=== PATIENT | male | born 1950 | race Caucasian/White ===

== ENCOUNTER 2016-10-09 07:14 | Outpatient (CLI) | payer MEDICARE ==
[~2016-10-09] VITALS: Ht 167.6 cm; Wt 79.5 kg
--- NOTE | ~2016-10-09 | OP ---
PATIENT NAME: MISSY JOHNSTON MEDICAL RECORD: [id number] :46 LOCATION:D.CAT ADMISSION DATE: SURGEON: PRECIOUS DIEHL M.D. DATE OF OPERATION: 10/09/2016 PROCEDURES PERFORMED: 1. Selective coronary angiography. 2. Left heart catheterization with ventriculogram. 3. PTCA to the circumflex artery. INDICATION: A 66-year-old gentleman with a history of coronary artery disease, who presents with recurrent angina. Recent stress testing revealing inferior wall ischemia. EQUIPMENT USED: Diagnostic 5-Nigerian JL4, Jesse right, pigtail catheter. INTERVENTION: A 6-Nigerian XB LAD guide, BMW guide wire, 3.0 x 15 mm Martin balloon. TECHNIQUE: A 5-Nigerian sheath was inserted in retrograde fashion in the right common femoral artery. Next, selective coronary angiography was performed in standard views using 5-Nigerian JL4 and Jeses right. Left heart catheterization performed using pigtail catheter. CORONARY ANATOMY: 1. Left main: Left main trunk is moderate in caliber. It gives rise to the LAD and circumflex. There is no obstruction. 2. LAD: This is a moderate caliber vessel extending to the apex. It has mild irregularities throughout its course, but nothing worse than 20% 3. Circumflex: This vessel is moderate in caliber. The proximal vessel has been stented. There is a 70% to 80% in-stent restenosis seen in the mid body of the stent. The distal circumflex coronary artery. 4. Right coronary: This vessel is 100% occluded in proximal segment. This is a chronic occlusion. It is collateralized through the circumflex. 5. Left ventricle: Left ventricle is mildly dilated. There is mild to moderate LV dysfunction noted. Estimated ejection fraction is in the order of 40%. DESCRIPTION OF INTERVENTION: A 6-Nigerian sheath was inserted in retrograde fashion in the right common femoral artery. Next, 100 units per kilogram of heparin was infused. A 6-Nigerian XB LAD guide was advanced and engaged in the left main coronary artery. Next, a BMW guide wire was placed in the distal circumflex. The in-stent restenosis was predilated with a 3.0 x 15 mm Martin balloon at 14 atmospheres. Injections revealed a less than 10% residual stenosis with brisk flow the distal vessel. At this point, the wire and guide were removed. IMPRESSION: Successful percutaneous transluminal coronary angioplasty to the circumflex for in-stent restenosis. TRANSINT:[id number] Voice Confirmation ID: [id number] DOCUMENT ID: [id number] OPERATIVE REPORT [id number] MISSY JOHNSTON TIMOTHY E M.D. CC: [id number] DICTATION DATE: 10/09/16 [facility] TELECOMMUNICATIONS FIELD ENGINEER: 10/09/162001 DEP CLI 10/09/16 [place] [id number] [place] [id number]
--- NOTE | ~2016-10-09 | HEMODYNAMI ---
PATIENT:MISSY JOHNSTON MEDICAL RECORD: [id number] : 46 LOCATION:DIlsaCAT ADMISSION DATE: 10/09/16 Generatedon:10/09/201610:07 Patient name: MISSY JOHNSTON Patient #: [id number] SSN: : 1950 Date of study: 10/09/2016 Page: Of Hemodynamic Procedure Report Patient Data Patient Demographics Procedure consent was obtained First Name: MISSY Gender: Male Last Name: VICKIE : 1950 Middle Initial: M Age: 66 year(s) Patient #: [id number] Race: Additional ID: [id number] Contact details [address]: [address] [place] [address] State: [place] City: [place] Zip code: [address] Past Medical History Performed procedures and imaging results Date Procedure Procedure Results Comments 09/17/2016 Stress testing Positive->Intermediate fixed with SPECT MPI risk inferior compatible with previous inferior [place], reversible lateral and apical segments Admission Admission Data Admission Date: 10/09/2016 Admission Time: 7:14 Height (in.): 66 BSA: 1.89 (m2) Height (cm.): 167.64 BMI: 28.25 (kg/m2) Weight (lbs.): 175 Weight (kg.): 79.38 Lab Results Lab Result Date: 10/09/2016 Lab Result Time: 0:00 Biochemistry Name Units Result Min Max BUN mg/dl 16 --(---*)-- 7 18 Creatinine mg/dl 1.3 --(---*)-- 0.6 1.3 CBC Name Units Result Min Max Hemoglobin g/dl 15.1 --(-*--)-- 13.5 17.5 Procedure Procedure Types Cath Procedure Diagnostic Procedure [facility] w/Coronaries PCI Procedure PTCA Initial Miscellaneous Procedures Moderate Sedation up to 30 minutes Procedure Description Procedure Date Procedure Date: 10/09/2016 Procedure Start Time: 9:39 Procedure End Time: 10:06 Procedure Staff Name Function Spencer Wilhelm MD Performing Physician Sonido Nelson RT Scrub Anh Fernandez RN Nurse Jordan Louise RT Monitor Procedure Data Cath Procedure Fluoroscopy Diagnostic fluoroscopy Total fluoroscopy Time: 4.1 time: 4.1 min min Diagnostic fluoroscopy Total fluoroscopy dose: dose: 1200 mGy 1200 mGy Contrast Material Contrast Material Type Amount (ml) Isovue 300 123 Entry Location Entry Primary Successful Side Size Upsize Upsize Entry Closure Succes sful Closure Location (Fr) 1 (Fr) 2 (Fr) Remarks Device Remarks Femoral Right 5 Fr 6 Fr artery Short Estimated blood loss: 10 ml Diagnostic catheters Device Type Used For End Catheter Placement Cordis 5Fr JL 4.0 Procedure Catheter (MP) Cordis 5Fr 3DRC Catheter Procedure (MP) Cordis 5Fr Pigtail Procedure Catheter (MP) Procedure Complications No complications Procedure Medications Medication Administration Route Dosage Oxygen NC 2 l/min Heparin Flush Bag added to field 2 bags (1000units/500ml NS) Lidocaine 2% added to field 20 Versed I.V. 1 mg Fentanyl I.V. 50 mcg Versed I.V. 1 mg Fentanyl I.V. 50 mcg Versed I.V. 1 mg Fentanyl I.V. 50 mcg Heparin Bolus I.V. 7600 units Versed I.V. 1 mg Fentanyl I.V. 50 mcg Nitroglycerin IC/IA I.C. 100 mcg Brilinta P.O. 180 mg Hemodynamics Rest BSA: 1.89 (m2) HGB: 15.1 (g/dl) O2 Consumption: Estimated: 216.62 (ml/min) O2 Co nsumption indexed: Estimated:114.61 (ml/min/m) Heart Rate: 66 (bpm) Pressure Samples Time Site Value (mmHg) Purpose Heart Use Rate(bpm) 9:46 LV 123/7,9 Snapshot 31 9:54 AO 89/57(72) Snapshot 77 Gradients Valve Time Site Site Mean SEP/DFP Peak To Heart Use 1 2 (mmHg) (sec/min) Peak Rate (mmHg) (bpm) Aortic 9:47 LV AO 41 Snapshots Pre Cath Intra NCS Post Cath Vital Signs Time Heart Resp SPO2 NIBP (mmHg) Rhythm Pain Sedation Rate (ipm) (%) Status Level (bpm) 9:20:14 62 23 98 126/76(96) NSR 0 (11) 10(A) , No pain 9:24:25 66 23 100 112/79(98) NSR 0 (11) 10(A) , No pain 9:28:37 67 16 100 112/65(79) NSR 0 (11) 10(A) , No pain 9:32:47 68 16 98 112/69(95) NSR 0 (11) 10(A) , No pain 9:36:59 68 16 98 109/65(87) NSR 0 (11) 10(A) , No pain 9:41:09 64 17 100 110/66(86) NSR 0 (11) 10(A) , No pain 9:45:13 72 15 99 129/81(107) NSR 0 (11) 9(A) , No pain 9:49:29 71 15 100 127/71(86) NSR 0 (11) 9(A) , No pain 9:53:45 80 15 100 95/62(90) NSR 0 (11) 9(A) , No pain 9:57:49 82 15 99 108/65(88) NSR 0 (11) 9(A) , No pain 10:02:01 79 16 98 105/58(87) NSR 0 (11) 10(A) , No pain 10:06:06 73 16 100 113/75(92) NSR 0 (11) 10(A) , No pain Medications Time Medication Route Dose Verified Delivered Reason Notes Effectiveness by by 9:20:04 Oxygen NC 2 Spencer Anh Per physician l/min Brady Fernandez RN 9:20:12 Heparin Flush added 2 Spencer Spencer used for Bag to bags Brady Wilhelm MD procedure (1000units/500ml field NS) 9:20:21 Lidocaine 2% added 20ml Spencer Spencer used for to vial Brady Wilhelm MD procedure field 9:36:51 Versed I.V. 1 mg Spencer Anh for sedation Brady Fernandez RN 9:37:01 Fentanyl I.V. 50 Spencer Anh for sedation mcg Brady Fernandez RN 9:39:01 Versed I.V. 1 mg Spencer Anh for sedation Brady Fernandez RN 9:39:12 Fentanyl I.V. 50 Spencer Anh for sedation mcg Brady Fernandez RN 9:41:19 Versed I.V. 1 mg Spencer Anh for sedation Brady Fernandez RN 9:41:24 Fentanyl I.V. 50 Spencer Anh for sedation mcg Brady Fernandez RN 9:44:49 Versed I.V. 1 mg Spencer Anh for sedation Brady Fernandez RN 9:44:54 Fentanyl I.V. 50 Spencer Anh for sedation mcg Brady Fernandez RN 9:51:13 Heparin Bolus I.V. 7600 Spencer Anh for dose units Brady Fernandez RN anticoagulation verified with dr wilhelm 9:57:11 Nitroglycerin I.C. 100 Spencer Spencer for IC/IA mcg Brady shahid 10:02:09 Brilinta P.O. 180 Spencer Anh for mg Brady Fernandez RN antiplatelet therapy Procedure Log Time Note 8:44:52 ACC Patient presents with Stable Angina CCS Anginal Class 2--Slight limitation of ordinary activity. 8:44:54 Diagnostic Cath status Elective 8:50:30 Jordan KNOTT(R) sent for patient. Start room use. 9:18:39 Time tracking: Regular hours 9:18:43 Plan of Care:Hemodynamics will remain stable., Cardiac rhythm will remain stable., Comfort level will be maintained., Respiratory function will remain adequate., Patient/ family verbilizes understanding of procedure., Procedure tolerated without complication., Recovers from procedure without complications.. 9:18:48 Patient received from Pre/Post Procedure Room to [facility] 2 Alert and oriented. Tansferred to table in Supine position. 9:18:50 Warm blankets applied, and geni hugger turned on for patient comfort. 9:18:50 Correct patient and procedure confirmed by team. 9:18:51 Signed procedure consent form obtained from patient. 9:18:52 ECG and BP/O2 sat monitors applied to patient. 9:19:11 Vital chart was started 9:20:04 Oxygen 2 l/min NC was administered by Anh Fernandez RN; Per physician; 9:20:12 Heparin Flush Bag (1000units/500ml NS) 2 bags added to field was administered by Spencer Wilhelm MD; used for procedure; 9:20:21 Lidocaine 2% 20ml vial added to field was administered by Spencer Wilhelm MD; used for procedure; 9:23:59 Baseline sample Acquired. 9:24:04 Rhythm: sinus rhythm 9:24:08 Full Disclosure recording started 9:24:37 H&P Date Dictated: 09/10/2016 Within 30 days and on chart., H&P Addendum completed by physician on day of procedure. (MUST COMPLETE FOR ALL OUTPATIENTS). 9:24:38 Pre-procedure instructions explained to patient. 9:24:38 Pre-op teaching completed and patient verbalized understanding. 9:24:39 Family in waiting room. 9:24:41 Patient NPO since Midnight. 9:24:42 Is the patient allergic to Iodine/contrast media? No. 9:25:53 Is patient on blood thinner?No 9:25:55 Patient diabetic? No. 9:25:58 Previous problem with sedation/anesthesia? No ? 9:25:59 Snore? Yes 9:26:00 Sleep apnea? No 9:26:01 Deviated septum? No 9:26:02 Opens mouth fully? Yes 9:26:03 Sticks out tongue? Yes 9:26:05 Airway obstruction? No ? 9:26:08 Dentures? Yes IN 9:26:23 Pre procedure: right dorsailis pedis pulse 1+ Palpable, but thready & weak; easily obliterated 9:26:25 Lab results completed and on chart. 9:26:30 Right groin area was prepped with chlora-prep and draped in sterile fashion 9:26:31 Alarms reviewed by R. N. 9:26:32 Sharps counted by scrub and verified by R.N. 9:26:35 Use device set Femoral Dx 9:26:36 Tegaderm 4 x 4 opened to sterile field. 9:26:37 Acist Hand Control opened to sterile field. 9:26:37 Acist Manifold opened to sterile field. 9:26:39 Acist Syringe opened to sterile field. 9:26:39 Bag Decanter opened to sterile field. 9:26:40 Medline Cath Pack opened to sterile field. 9:26:40 Terumo 5Fr Clifton Sheath opened to sterile field. 9:26:40 St Juve 260cm J .035 wire opened to sterile field. 9:26:44 Diagnostic Infinity 5Fr Multipack catheter opened to sterile field. 9:30:31 Patient Height : 167.64 cm 9:30:35 Patient Weight : 79.38 kg 9:36:11 --------ALL STOP TIME OUT------ 9:36:12 Final Timeout: patient, procedure, and site verified with staff and physician. All members of the team are in agreement. 9:36:38 Right groin site verified by team. 9:36:41 Physical assessment completed. ASA score P 2 - A patient with mild systemic disease as per Spencer Wilhelm MD. 9:36:44 Sedation plan: IV Moderate Sedation Versed, Fentanyl 9:36:51 Versed 1 mg I.V. was administered by Anh Fernandez RN; for sedation; 9:37:01 Fentanyl 50 mcg I.V. was administered by Anh Fernandez RN; for sedation; 9:38:05 Lab Result : BUN 16 mg/dl 9:38:05 Lab Result : Hemoglobin 15.1 g/dl 9:38:05 Lab Result : Creatinine 1.3 mg/dl 9:39:01 Versed 1 mg I.V. was administered by Anh Fernandez RN; for sedation; 9:39:12 Fentanyl 50 mcg I.V. was administered by Anh Fernandez RN; for sedation; 9:39:52 Procedure started. 9:39:56 Local anesthetic to right femoral artery with Lidocaine 2% by Spencer Wilhelm MD.INITIAL ACCESS ONLY 9:41:19 Versed 1 mg I.V. was administered by Anh Fernandez RN; for sedation; 9:41:22 Zero performed for pressure channel P1 9:41:24 Fentanyl 50 mcg I.V. was administered by Anh Fernandez RN; for sedation; 9:42:22 A 5 Fr sheath was inserted into the Right Femoral artery 9:42:29 A Cordis 5Fr JL 4.0 Catheter (FARAZ) was advanced over the wire and used for Procedure. 9:43:54 LCA angiography performed. 9:44:49 Versed 1 mg I.V. was administered by Anh Fernandez RN; for sedation; 9:44:54 Fentanyl 50 mcg I.V. was administered by Anh Fernandez RN; for sedation; 9:45:05 Catheter exchanged over wire. 9:45:28 A Cordis 5Fr 3DRC Catheter (MP) was advanced over the wire and used for Procedure. 9:46:02 RCA occluded in the mid portion. 9:46:04 Catheter exchanged over wire. 9:46:11 A Cordis 5Fr Pigtail Catheter (MP) was advanced over the wire and used for Procedure. 9:47:02 LV angiography performed. 9:47:03 LV gram done using ASHLEY 9:47:05 LV hemodynamics recorded. 9:47:08 Injector settings: Ml/sec: 10, Volume: 20, 9:47:22 EF : 40 % 9:47:32 Catheter exchanged over wire. 9:47:33 Decade WorldwideixCompak Inflation Kit opened to sterile field. 9:47:34 b5media BMW [place] 2 J-tip 300cm 0.014 guide wir opened to sterile field. 9:47:34 High Pressure Extension Tubing (Brady) opened to sterile field. 9:47:34 Terumo 6Fr Clifton Sheath opened to sterile field. 9:47:35 Cordis 6FR XBLAD 3.5 guide catheter opened to sterile field. 9:48:24 Sheath upsized to a 6 Fr Short. 9:48:30 ACC PCI Site: [facility] has 70% stenosis. 9:48:32 ACC Pre-intervention MARU Flow is 3. 9:48:38 6 Fr XBLAD 3.5 guide catheter was inserted over the wire 9:51:13 Heparin Bolus 7600 units I.V. was administered by Anh Fernandez RN; for anticoagulation; dose verified with dr wilhelm 9:51:48 BM wire advanced. 9:53:44 Wire advanced across lesion. 9:54:21 Inflation number: 1 A [place] Sci [place] 3.0 X 15 balloon was prepped and advanced across the Mid CX, then inflated to 10 CARMEN for 0:10 (min:sec). 9:55:36 Inflation number: 2 The [place] Sci [place] 3.0 X 15 balloon was reinflated across the Mid CX, to 10 CARMEN for 0:10 (min:sec). 9:57:11 Nitroglycerin IC/IA 100 mcg I.C. was administered by Spencer Wilhelm MD; for vasodilation; 10:00:10 Stent catheter was removed intact over wire. 10:00:11 Wire removed. 10:00:11 Guide catheter removed. 10:00:20 Cordis 6Fr Exoseal opened to sterile field. 10:00:23 Procedure ended.(Physican Out) 10:00:29 Fluoroscopy time 04.10 minutes. 10:00:32 Fluoroscopy dose: 1200 mGy 10:00:32 Flurop Dose total: 1200 10:00:35 Contrast amount:Isovue 300 123ml. 10:00:37 Sharps counted by scrub and verified by R.N. 10:01:35 Insertion/operative site no bleeding no hematoma. 10:01:38 Post-op/insertion site Right Femoral artery dressed using a 4 x 4 and Tegaderm. 10:01:39 Post Procedure Pulses reassessed and unchanged 10:01:42 Post-procedure physical assessment completed. ASA score P 2 - A patient with mild systemic disease as per Spencer Wilhelm MD. 10:01:44 Post procedure rhythm: unchanged. 10:01:47 Estimated blood loss: 10 ml 10:01:49 Post procedure instruction explained to patient.Patient verbalizes understanding. 10:01:50 Patient needs reinforcement of post procedure teaching. 10:02:04 Procedure type changed to Cath procedure, Diagnostic procedure, LHC, LHC w/Coronaries, PCI procedure, PTCA Initial, Miscellaneous Procedures, Moderate Sedation up to 30 minutes 10:02:09 Brilinta 180 mg P.O. was administered by Anh Fernandez RN; for antiplatelet therapy; 10:02:09 Procedure Complication : No complications 10:06:19 Procedure and supply charges have been captured, reviewed, submitted and are correct. 10:06:21 Vital chart was stopped 10:: See physician's report for complete and final results. 10::23 Report given to Pre/Post Procedure Room. 10:06:26 Patient transfered to Pre/Post Procedure Room with Stretcher. 10:06:28 Procedure ended. 10::28 Full Disclosure recording stopped ::32 End room use (Document Last) Intervention Summary Intervention Notes Time ActionType Lesion and Equipment Action# Pressure Duration Attributes Used 9:54:21 Inflate Mid CX [place] 1 10 00:10 balloon [place] 3.0 X 15 balloon 9:55:36 Reinflate Mid CX [place] 2 10 00:10 balloon [place] 3.0 X 15 balloon Device Usage Item Name Manufacture Quantity Catalog Number Hospital Part Current Mini [facility] Lot# / Charge Number Stock Stock Serial# Code Tegaderm 4 1 [id number] 5 x 4 Acist Hand Acist 1 03264 096164 113460 254806 5 Control Medical Systems Inc Acist Acist 1 13183 435814 823177 450294 5 Manifold Medical Systems Inc Acist Acist 1 49164 132531 128801 856743 20 Syringe Medical Systems Inc Bag Microtek 1 2002S 653030 43356 178578 5 Decanter Medical Inc. Medline Cardinal 1 [id number] 859805 23210 684425 5 Cath Pack Health Terumo 5Fr Terumo 1 [id number] 787823 180649 252556 [address] Ju[address] St Juve 1 156998 895407 128103 866452 30 260cm J .035 wire Diagnostic Cardinal 1 [id number] 384861 69736 145236 30 Infinity Health 5Fr Multipack catheter Cordis 5Fr Cardinal 1 479475 5 JL 4.0 Health Catheter (MP) Cordis 5Fr Cardinal 1 196501 5 3DRC Health Catheter (MP) Cordis 5Fr Cardinal 1 186124 5 Pigtail Health Catheter (MP) Merit Merit 1 [id number] 034261 881968 289424 15 BasixCompak Medical Inflation Kit [place] BMW [place] 1 [id number] 170164 051219 028034 5 [place] 2 Vascular J-tip 300cm 0.014 guide wir High Merit 1 [id number] 229430 31200 262379 10 Pressure Medical Extension Tubing (Wilhelm) Terumo 6Fr Terumo 1 [id number] 563094 452071 169398 40 Clifton Sheath Cordis 6FR Cardinal 1 [id number] 999901 356057 018831 10 XBLAD 3.5 Health guide catheter [place] Sci [place] 1 [id number] 409057 621401 147805 1 Chenal Media 3.0 X 15 balloon Cordis 6Fr Cardinal 1 EX600 082567 154452 354442 10 Academize Signature Audit [place] Stage Time Signature Unsigned Intra-Procedure 10/09/2016 Jordan Louise 10:06:57 AM RT(R) Signatures Monitor : Jordan Louise RT Signature : Date : Time : [address] [place] [address]
[~2016-10-09 07:14] MED LIST: ASPIRIN81 MG; ASPIRIN81 MG PO; EFFIENT10 MG PO; FLUTICASONE PRO16 GM NASAL; IPRAT-ALBUT 0.5-3 ML UPD; LASIX20 MG; LASIX20 MG PO; LEVAQUIN500 MG PO; LISINOPRIL2.5 MG PO; PREDNISONE20 MG PO; SINGULAIR10 MG; SINGULAIR10 MG PO; TESSALON PERLE100 MG PO
[2016-10-09] MEDS ORDERED: COREG6.25 MG PO (07:44)
[2016-10-09] MEDS ORDERED: BAYER CHEWABLE81 MG PO (07:44)
[2016-10-09] MEDS ORDERED: ALBUTEROL2.5 MG/3 M INH (07:45)
[2016-10-09 07:56] VITALS: BP 130/71; Ht 167.6 cm; Wt 79.5 kg
[2016-10-09 08:09] LABS: BASOPHILS 0.3 % (0-2); EOSINOPHILS 0 % (0-7); HEMATOCRIT 45.7 % (42.0-54.0); HEMOGLOBIN 15.1 g/dL (13.5-17.5); IMMATURE GRANULOCYTES 0.2 % (0-5); MCH 31.1 pg (26.0-34.0); MEAN PLATELET VOLUME 9.9 fL (7.4-10.4); NEUTROPHILS 70.5 % (40-80); PLATELET COUNT 206 10x3/uL (130-400); RBC 4.86 10x6/uL (4.20-6.10); RDW 13.5 % (11.5-14.5); WBC 9.1 10x3/uL (4.8-10.8)
[2016-10-09 08:24] LABS: ANION GAP 10.5 mmol/L (8-16); CALCIUM 9.4 mg/dL (8.5-10.1); CARBON DIOXIDE 29.3 mmol/L (21.0-32.0); CREATININE - SERUM 1.3 mg/dL (0.6-1.3); POTASSIUM - SERUM 4.8 mmol/L (3.5-5.1)
--- NOTE | 2016-10-09 10:35 | NUR ---
2L NC, NO RESP DISTRESS NOTED. RIGHT GROIN 6F EXOSEAL CDI, NO BLEEDING OR HEMATOMA NOTED. VSS. NO C/O CHEST PAIN OR NAUSEA. WILL CONTINUE TO MONITOR.
[2016-10-09] MEDS ORDERED: BRILINTA90 MG PO (10:42)
--- NOTE | 2016-10-09 11:35 | NUR ---
1125 DRESSING TO RIGHT GROIN IS CLEAN AND DRY BUT SMALL HEMATOMA NOTED. PRESSURE HELD AT SITE X 5 MINS AND SUPERVISORY IT SPECIALIST STAFF APPLIED FEMSTOP. WILL CONTINUE TO MONITOR.
--- NOTE | 2016-10-09 12:14 | NUR ---
[address], NO BLEEDING NOTED, HEMATOMA SOFTENED. PT DENIES C/O. WILL CONTINUE TO MONITOR.
--- NOTE | 2016-10-09 12:30 | NUR ---
FEMSTOP PRESSURE DECREASED BY 20. NO BLEEDING OR HEMATOMA NOTED.
--- NOTE | 2016-10-09 13:00 | NUR ---
FEMSTOP PRESSURE DECREASED BY 20. NO BLEEDING OR HEMATOMA NOTED.
--- NOTE | 2016-10-09 13:29 | NUR ---
FEMSTOP PRESSURE DECREASED BY 20. NO BLEEDING NOTED.
--- NOTE | 2016-10-09 13:45 | NUR ---
FEMSTOP PRESSURE DECREASED BY 30. NO BLEEDING NOTED.
--- NOTE | 2016-10-09 14:20 | NUR ---
REMAINING AIR REMOVED FROM FEMSTOP AND FEMSTOP REMOVED FROM GROIN. NO BLEEDING NOTED.
--- NOTE | 2016-10-09 14:44 | NUR ---
HOB ELEVATED 30 DEGREES. RIGHT GROIN CDI, NO BLEEDING OR HEMATOMA NOTED. SANDWICH TRAY GIVEN.
--- NOTE | 2016-10-09 15:07 | NUR ---
LEFT HAND PIV D/C'D WITH CATHETER INTACT, BAND AID TO SITE. UP TO BEDSIDE TO GET DRESSED.
--- NOTE | 2016-10-09 15:10 | NUR ---
UP TO RESTROOM TO VOID.
--- NOTE | 2016-10-09 15:15 | NUR ---
DISCHARGE INSTRUCTIONS GIVEN, VERBALIZED UNDERSTANDING.
--- NOTE | 2016-10-09 15:22 | NUR ---
TAKEN OUT VIA WHEELCHAIR BY CATH IMPORT EXPORT CLERK. LEFT FACILITY WITH FAMILY MEMBER AND ALL PERSONAL BELONGINGS.
== END 2016-10-09 15:22 | disposition home or self-care (01) ==
LOC: D.CATH 07:14
PROVIDERS: Internal Medicine Cardiovascular Disease
DX: I25.10 Atherosclerotic heart disease of native coronary artery without angina pectoris (principal); I10 Essential (primary) hypertension; F17.200 Nicotine dependence, unspecified, uncomplicated; Z01.812 Encounter for preprocedural laboratory examination

== ENCOUNTER → 2017-01-23 10:10 | Outpatient (CLI) | payer MEDICARE ==
[2016-10-09 07:56] VITALS: BMI 28.3
[~2017-01-23 10:10] MED LIST changes: +ALBUTEROL2.5 MG/3 M INH; +BAYER CHEWABLE81 MG PO; +BRILINTA90 MG PO; +COREG6.25 MG PO
== END | disposition home or self-care (01) ==
LOC: D.RT 10:10
DX: J44.9 Chronic obstructive pulmonary disease, unspecified (principal)

== ENCOUNTER → 2017-06-30 10:28 | Outpatient (CLI) | payer MEDICARE ==
[2016-10-09 07:56] VITALS: BMI 28.3
== END | disposition home or self-care (01) ==
LOC: D.RT 10:28
DX: J44.9 Chronic obstructive pulmonary disease, unspecified (principal)

== ENCOUNTER → 2018-07-06 12:50 | Outpatient (CLI) | payer MEDICARE ==
[2016-10-09 07:56] VITALS: BMI 28.3
== END | disposition home or self-care (01) ==
LOC: D.RT 11:00
DX: J44.9 Chronic obstructive pulmonary disease, unspecified (principal)

== ENCOUNTER → 2018-12-30 10:17 | Outpatient (CLI) | payer MEDICARE ==
[2016-10-09 07:56] VITALS: BMI 28.3
== END | disposition home or self-care (01) ==
LOC: D.HCCARDIO 10:17
PROVIDERS: ATTEND Internal Medicine Cardiovascular Disease
DX: I25.10 Atherosclerotic heart disease of native coronary artery without angina pectoris (principal)

== ENCOUNTER 2019-01-25 10:55 | Outpatient (CLI) | payer MEDICARE ==
[~2019-01-25] VITALS: Ht 167.6 cm; Wt 90.9 kg
--- NOTE | ~2019-01-25 | HEMODYNAMI ---
PATIENT:MISSY JOHNSTON MEDICAL RECORD: [id number] : 46 LOCATION:[facility] ADMISSION DATE: 01/25/19 Generatedon:01/25/201913:44 Patient name: MISSY JOHNSTON Patient #: [id number] SSN: [id number] : 1950 Date of study: 01/25/2019 Page: Of Hemodynamic Procedure Report Patient Data Patient Demographics Procedure consent was obtained First Name: MISSY Gender: Male Last Name: VICKIE : 1950 Middle Initial: M Age: 68 year(s) Patient #: [id number] Race: SSN: [id number] Additional ID: [id number] Contact details Address: [address] [place] [address] State: [place] City: [place] Zip code: [address] Past Medical History Performed procedures and imaging results Date Procedure Procedure Results Comments 12/30/2018 Standard Positive->Intermediate exercise stress risk test Allergies: No known allergies Admission Admission Data Admission Date: 01/25/2019 Admission Time: 10:55 Arrival Date: 01/25/2019 Arrival Time: 0:00 Admit Source: Other Insurance Payor: Private health insurance [facility] #: [id number] Height (in.): 65.75 BSA: 1.99 (m2) Height (cm.): 167 BMI: 32.27 (kg/m2) Weight (lbs.): 198.42 Weight (kg.): 90 Lab Results Lab Result Date: 01/25/2019 Lab Result Time: 12:05 Biochemistry Name Units Result Min Max BUN mg/dl 10 --(-*--)-- 7 18 Creatinine mg/dl 1.1 --(--*-)-- 0.6 1.3 CBC Name Units Result Min Max Hematocrit % 41.1 -*(----)-- 42 54 Hemoglobin g/dl 14.2 --(*---)-- 13.5 17.5 Procedure Procedure Types Cath Procedure Diagnostic Procedure [facility] Procedure Description Procedure Date Procedure Date: 01/25/2019 Procedure Start Time: 13:31 Procedure End Time: 13:43 Procedure Staff Name Function Spencer Abreu MD Performing Physician Xavier Atkinson RT Monitor Kenny Lugo RT Scrub Amy Amezcua RN Nurse Procedure Data Cath Procedure Fluoroscopy Diagnostic fluoroscopy Total fluoroscopy Time: 1.2 time: 1.2 min min Diagnostic fluoroscopy Total fluoroscopy dose: 470 dose: 470 mGy mGy Contrast Material Contrast Material Type Amount (ml) Isovue 300 56 Entry Location Entry Primary Successful Side Size Upsize Upsize Entry Closure Succes sful Closure Location (Fr) 1 (Fr) 2 (Fr) Remarks Device Remarks Femoral Right 5 Fr Exoseal artery Estimated blood loss: 5 ml Diagnostic catheters Device Type Used For End Catheter Placement MULTIPACK JL 4.0 5Fr Procedure catheter MULTIPACK 3DRC 5Fr Procedure catheter MULTIPACK Pigtail 5 Fr Procedure catheter Procedure Complications No complications Procedure Medications Medication Administration Route Dosage 0.9% NaCl I.V. 100 ml/hr Oxygen etCO2 Nasal cannula 2 l/min Lidocaine 2% added to field 20 Heparin Flush Bag added to field 2 bags (1000units/500ml NS) Versed I.V. 2 mg Fentanyl I.V. 100 mcg Hemodynamics Rest BSA: 1.99 (m2) HGB: 14.2 (g/dl) O2 Consumption: Estimated: 231.26 (ml/min) O2 Co nsumption indexed: Estimated:116.21 (ml/min/m) Heart Rate: 71 (bpm) Pressure Samples Time Site Value (mmHg) Purpose Heart Use Rate(bpm) 13:38 LV 157/7,27 Snapshot 75 13:39 AO 167/85(120) Pullback 81 13:39 LV 167/12,31 Pullback 81 Gradients Valve Time Site 1 Site 2 Mean SEP/DFP Peak To Heart Use (mmHg) (sec/min) Peak Rate (mmHg) (bpm) Aortic 13:39 LV AO 10 17 0 81 167/12,31 167/85(120) Calculations Valve P-P Mean Valve Index Valve Source Name Gradient Area Flow (cm2) Aortic 0 10 0 10 Snapshots Pre Cath Intra NCS Post Cath Vital Signs Time Heart Resp SPO2 etCO2 NIBP (mmHg) Rhythm Pain Sedation Rate (ipm) (%) (mmHg) Status Level (bpm) 13:21:29 71 11 100 36.7 140/81(114) NSR 0 (11) 10(A) , No pain 13:25:27 73 19 100 24.7 139/80(114) NSR 0 (11) 10(A) , No pain 13:29:22 72 17 98 35.2 130/80(102) NSR 0 (11) 10(A) , No pain 13:33:47 74 16 97 26.9 143/85(117) NSR 0 (11) 9(A) , No pain 13:38:21 74 19 99 35.2 160/83(116) NSR 0 (11) 10(A) , No pain 13:43:03 77 16 100 29.2 176/96(142) NSR 0 (11) 10(A) , No pain Medications Time Medication Route Dose Verified Delivered Reason Notes Eff ectiveness by by 13:23:45 0.9% NaCl I.V. 100 Spencer Amy used for ml/hr Brady Amezcua neon tube pumper 13:23:52 Oxygen etCO2 2 Spencer Amy used for Nasal l/min Brady Amezcua procedure cannula RN 13:23:56 Lidocaine 2% added 20ml Spencer Spencer for local to vial Brady Abreu MD anesthetic field 13:24:01 Heparin Flush added 2 Spencer Spencer used for Bag to bags Brady Abreu MD procedure (1000units/500ml field NS) 13:31:18 Versed I.V. 2 mg Spencer Amy for Brady Amezcua sedation RN 13:31:23 Fentanyl I.V. 100 Spencer Amy for mcg Brady Amezcua sedation trailer mechanic Log Time Note 13:05:46 Kenny Lugo RT(R) (CV) sent for patient. Start room use. 13:12:11 Informed consent obtained and on chart 13:16:55 Admit Source: Other 13:17:04 Insurance Payor : Private health insurance 13:17:18 Arrival Date: 01/25/2019 12:00:00 AM 13:17:21 Patient Weight : 198.42 lbs 13:17:27 Patient Height : 65.75 inches 13:19:36 ACC Patient presents with Stable Angina CCS Anginal Class 3--Marked limitation of physical activity, angina occurs with ordinary activity.. 13:19:40 ACCPatient has been prescribed/administered the following anti-anginal medication within the last 2 weeks: Beta Brian, MARY-Inhibitor 13:19:43 Procedure Status Elective Heart Cath (OP). 13:19:51 Time tracking: Regular hours (M-F 7:00 - 5:00) 13:19:54 Plan of Care:Hemodynamics will remain stable., Cardiac rhythm will remain stable., Comfort level will be maintained., Respiratory function will remain adequate., Patient/ family verbilizes understanding of procedure., Procedure tolerated without complication., Recovers from procedure without complications.. 13:19:57 Patient received from Pre/Post Procedure Room to [facility] 2 Alert and oriented. Tansferred to table in Supine position. 13:19:58 Warm blankets applied, and geni hugger turned on for patient comfort. 13:19:58 Correct patient and procedure confirmed by team. 13:19:59 ECG and BP/O2 sat monitors applied to patient. 13:20:28 H&P Date Dictated: 01/25/2019 Within 30 days and on chart.. 13:20:36 Vital chart was started 13:20:37 Baseline sample Acquired. 13:20:40 Rhythm: sinus rhythm 13:20:41 Full Disclosure recording started 13:20:42 Pre-procedure instructions explained to patient. 13:20:42 Pre-op teaching completed and patient verbalized understanding. 13:20:43 Family in waiting room. 13:20:45 Patient NPO since Breakfast. 13:20:50 Patient allergic to No known allergies 13:20:52 Is the patient allergic to Iodine/contrast media? No. 13:20:53 Is patient on blood thinner?No 13:20:54 Patient diabetic? No. 13:20:56 Previous problem with sedation/anesthesia? No ? 13:20:57 Snore? Yes 13:20:58 Sleep apnea? No 13:20:59 Deviated septum? No 13:20:59 Opens mouth fully? Yes 13:21:00 Sticks out tongue? Yes 13:21:03 Airway obstruction? Yes COPD 13:21:09 Dentures? Yes UPPER IN TIGHT 13:21:18 Pre procedure: right dorsailis pedis pulse 2+ Normal; easily identifiable; not easily obliterated 13:21:20 Patient pain scale 0/10 ?. 13:21:24 IV patent on arrival in left forearm with 0.9% NaCl at [facility]. 13::54 Lab Result : BUN 10 mg/dl 13:: Lab Result : Creatinine 1.1 mg/dl 13::54 Lab Result : Hematocrit 41.1 % ::54 Lab Result : Hemoglobin 14.2 g/dl 13::56 Lab results completed and on chart. 13::59 Right groin area was prepped with chlora-prep and draped in sterile fashion 13::59 Alarms reviewed by R. N. 13::59 Sharps counted by scrub and verified by R.N. 13:22:01 Use device set Femoral Dx 13:22:02 ACIST Syringe (05493) opened to sterile field. 13:22:02 Bag Decanter (2002S) opened to sterile field. 13:22:03 Medline Cath Pack ([id number]) opened to sterile field. 13:22:04 ACIST Hand Control (18813) opened to sterile field. 13:22:04 ACIST Manifold (62773) opened to sterile field. 13:22:05 DIAGNOSTIC Multipack 5Fr catheter set ([id number]) opened to sterile field. 13:22:05 Tegaderm 4 x 4 (1626W) opened to sterile field. 13:22:06 EMERALD Guide Wire (323-848) opened to sterile field. 13:22:07 SHEATH 5FR [place] (CZR086) opened to sterile field. 13:23:45 0.9% NaCl 100 ml/hr I.V. was administered by Amy Amezcua RN; used for procedure; 13:23:52 Oxygen 2 l/min etCO2 Nasal cannula was administered by Amy Amezcua RN; used for procedure; 13:23:56 Lidocaine 2% 20ml vial added to field was administered by Spencer Abreu MD; for local anesthetic; 13:24:01 Heparin Flush Bag (1000units/500ml NS) 2 bags added to field was administered by Spencer Abreu MD; used for procedure; 13:30:12 Zero performed for pressure channel P1 13:30:52 Physician arrived 13:30:52 --------ALL STOP TIME OUT------ 13:30:53 Final Timeout: patient, procedure, and site verified with staff and physician. All members of the team are in agreement. 13:30:54 Right groin site verified by team. 13:30:56 Fire Safety Assessment: A--An alcohol-based skin anteseptic being used preoperatively., C--Open oxygen or nitrous oxide is being used., D--An ESU, laser, or fiber-optic light is being used. 13:30:58 Physical assessment completed. ASA score P 2 - A patient with mild systemic disease as per Spencer Abreu MD. 13:31:02 2) 60-89 Mildly reduced kidney function, and other findings (as for stage 1) point to kidney disease. 13:31:09 Maximum allowable contrast dose (3.7 X eGFR X 0.75)195 ml. 13:31:12 Sedation plan: IV Moderate Sedation Medication:Versed, Fentanyl 13:31:18 Procedure started. 13:31:18 Versed 2 mg I.V. was administered by Amy Amezcua RN; for sedation; 13:31:21 Local anesthetic to right femoral artery with Lidocaine 2% by Spencer Abreu MD.INITIAL ACCESS ONLY 13:31:23 Fentanyl 100 mcg I.V. was administered by Amy Amezcua RN; for sedation; 13:32:51 A 5 Fr sheath was inserted into the Right Femoral artery 13:34:19 A MULTIPACK JL 4.0 5Fr catheter was advanced over the wire and used for Procedure. 13:35:02 LCA angiography performed. 13:35:44 Catheter exchanged over wire. 13:35:49 A MULTIPACK 3DRC 5Fr catheter was advanced over the wire and used for Procedure. 13:36:49 RCA angiography performed. 13:37:21 Catheter exchanged over wire. 13:37:26 A MULTIPACK Pigtail 5 Fr catheter was advanced over the wire and used for Procedure. 13:38:32 LV gram done using ASHLEY 13:38:35 Injector settings: Ml/sec: 10, Volume: 20, 13:38:36 LV hemodynamics recorded. 13:39:35 Catheter removed. 13:39:42 EXOSEAL 5Fr (EX500) opened to sterile field. 13:39:54 Sheath removed intact; hemostasis achieved with Exoseal to the Right Femoral artery. 13:39:55 Procedure ended.(Physican Out) 13:40:17 Fluoroscopy time 01.20 minutes. 13:40:20 Flurop Dose total: 470 13:40:20 Fluoroscopy dose: 470 mGy 13:40:34 Dose Area Product 85929 mGy/cm. 13:40:38 Contrast amount:Isovue 300 56ml. 13:40:40 Maximum allowable dose exceeded? No. 13:40:41 Sharps counted by scrub and verified by R.N. 13:40:42 Insertion/operative site no bleeding no hematoma. 13:40:44 Post-op/insertion site Right Femoral artery dressed using a 4 x 4 and Tegaderm. 13:40:47 Post right femoral artery:stable, soft, clean and dry 13:40:48 Post Procedure Pulses reassessed and unchanged 13:40:51 Post-procedure physical assessment completed. ASA score P 2 - A patient with mild systemic disease as per Spencer Abreu MD. 13:40:53 Post procedure rhythm: unchanged. 13:42:15 Estimated blood loss: 5 ml 13:42:28 Post procedure instruction explained to patient.Patient verbalizes understanding. 13:42:28 Patient needs reinforcement of post procedure teaching. 13:42:57 Procedure and supply charges have been captured, reviewed, submitted and are correct. 13:42:59 Procedure Complication : No complications 13:43:01 Vital chart was stopped 13:43:01 See physician's report for complete and final results. 13:43:05 Report given to Pre/Post Procedure Room. 13:43:07 Patient transfered to Pre/Post Procedure Room with Stretcher. 13:43:09 Procedure ended. 13:43:09 Full Disclosure recording stopped 13:43:16 End room use (Document Last) Device Usage Item Name Manufacture Quantity Catalog Hospital Part Current Minimal L ot# / Number Charge Number Stock Stock Serial# Code ACIST Acist 1 [id number] [id number] 20 Syringe Medical (38785) Systems Inc Bag Microtek 1 [id number] 72829 [id number] 5 Decanter Medical Inc. () Medline Medline 1 [id number] 359559 04296 472974 5 Cath Pack ([id number]) ACIST Hand Acist 1 24428 621827 631250 905762 5 Control Medical (85085) Systems Inc ACIST Acist 1 76296 901520 736195 425679 5 Manifold Medical (23629) Systems Inc DIAGNOSTIC Cardinal 1 [id number] 011157 26471 609178 30 Multipack Health 5Fr catheter set (SH8751) Tegaderm 4 3M 1 1626W 822168 309637 560378 5 x 4 (1626W) EMERALD Cardinal 1 502-455 551451 510270 900007 5 Guide Wire Health (502-455) SHEATH 5FR Terumo 1 DVP708 690428 329906 373996 5 [place] (OBP300) MULTIPACK Cardinal 1 620622 5 JL 4.0 5Fr Health catheter MULTIPACK Cardinal 1 681692 5 3DRC 5Fr Health catheter MULTIPACK Cardinal 1 938002 5 Pigtail 5 Health Fr catheter EXOSEAL 5Fr Cardinal 1 EX500 264243 687909 777990 10 (EX500) Health Signature Audit [place] Stage Time Signature Unsigned Intra-Procedure 01/25/2019 Xavier Atkinson 1:44:07 PM RT(R) Signatures Performing Physician : Signature : Spencer Abreu MD Date : Time : Monitor : Xavier Atkinson RT Signature : Date : Time : Nurse : Amy Amezcua RN Signature : Date : Time : [facility] [address], [place] [id number]
[2019-01-25] MEDS ORDERED: LISINOPRIL10 MG PO (11:50)
[2019-01-25] MEDS ORDERED: TRELEGY ELLIPT1 EACH INH (11:57)
[2019-01-25] MEDS ORDERED: AZELASTINE137 MCG/0. NASAL (11:58)
[2019-01-25 12:06] VITALS: BP 142/76; Ht 167.6 cm; Wt 90.9 kg
[2019-01-25 12:19] LABS: BASOPHILS 0.2 % (0-2); EOSINOPHILS 0 % (0-7); HEMATOCRIT 41.1 % (42.0-54.0); HEMOGLOBIN 14.2 g/dL (13.5-17.5); IMMATURE GRANULOCYTES 0.2 % (0-5); LYMPHOCYTES 20.5 % (15-50); MCH 30.5 pg (26.0-34.0); MCHC 34.5 g/dL (31.0-37.0); MCV 88.2 fL (80.0-100.0); MEAN PLATELET VOLUME 9.2 fL (7.4-10.4); MONOCYTES 10.3 % (2-11); NEUTROPHILS 68.8 % (40-80); PLATELET COUNT 211 10x3/uL (130-400); RBC 4.66 10x6/uL (4.20-6.10); RDW 14.9 % (11.5-14.5); WBC 10.2 10x3/uL (4.8-10.8)
[2019-01-25 12:35] LABS: ANION GAP 10.9 mmol/L (8-16); CALCIUM 9.2 mg/dL (8.5-10.1); CARBON DIOXIDE 28.6 mmol/L (21.0-32.0); CHOL - HDL RATIO 5.7 ratio (2.3-4.9); CREATININE - SERUM 1.1 mg/dL (0.6-1.3); POTASSIUM - SERUM 4.5 mmol/L (3.5-5.1)
--- NOTE | 2019-01-25 13:52 | NUR ---
PT ARRIVED BY STRETCHER. PLACED ON MONITOR. ASSESSMENT COMPLETED. VSS. NO FAMILY AT BEDSIDE AT THIS TIME. CALL LIGHT WITHIN REACH.
--- NOTE | 2019-01-25 14:07 | NUR ---
RIGHT GROIN DRESSING C/D/I. NO S/S OF HEMATOMA NOTED. CALL LIGHT WITHIN REACH. VSS.
--- NOTE | 2019-01-25 14:37 | NUR ---
PT RESTING COMFORTABLY. RIGHT GROIN DRESSING C/D/I. NO S/S OF HEMATOMA NOTED. CALL LIGHT WITHIN REACH. FAMILY AT BEDSIDE.
--- NOTE | 2019-01-25 14:55 | NUR ---
HEAD OF BED INC TO 30 DEGREES. PT DENIES NAUSEA. SET UP WITH DRINK AND SANDWICH TRAY. RIGHT GROIN DRESSING C/D/I. NO S/S OF HEMATOMA NOTED. CALL LIGHT WITHIN REACH.
--- NOTE | 2019-01-25 15:30 | NUR ---
RIGHT GROIN DRESSING C/D/I. NO S/S OF HEMATOMA NOTED. PIV D/C'D WITH CATH TIP INTACT. PT TOLERATED WELL. PT INSTRUCTED TO GET DRESSED. FAMILY AT BEDSIDE TO ASSIST.
--- NOTE | 2019-01-25 15:45 | NUR ---
DISCUSSED DISCHARGE INSTRUCTIONS WITH PT AND PT'S FAMILY. THEY VOICED UNDERSTANDING. PT AMBULATED TO RESTROOM. VOIDED WITHOUT DIFFICULTY. RIGHT GROIN DRESSING C/D/I. NO S/S OF HEMATOMA NOTED.
--- NOTE | 2019-01-25 15:59 | NUR ---
PT TAKEN OUT TO VEHICLE BY WHEELCHAIR. NO S/S OF DISTRESS NOTED. ALL BELONGINGS AND PAPERWORK IN HAND.
== END 2019-01-25 16:00 | disposition home or self-care (01) ==
LOC: D.CATH 10:55
PROVIDERS: ATTEND Internal Medicine Cardiovascular Disease
DX: I25.119 Atherosclerotic heart disease of native coronary artery with unspecified angina pectoris (principal); Z95.5 Presence of coronary angioplasty implant and graft; Z01.812 Encounter for preprocedural laboratory examination